=== PATIENT | female | born 1990 | race Two or more races ===

== ENCOUNTER → 2018-12-12 | Emergency (ER) | payer BC, OTHER ==
[~2018-12-12] VITALS: Ht 175.3 cm; Wt 99.8 kg
[~2018-12-12] MED LIST: BACLOFEN 10 MG TAB PO ONE; HYDROcodone-ACET 5/325MG TAB PO ONE; SODIUM CHLORIDE 0.9% 1,000 ML IV ONE
[2018-12-13 04:35] VITALS: BP 106/61
== END | disposition home or self-care (01) ==
LOC: EDBD 19:10 → ER 19:13
DX: S01.111A Laceration without foreign body of right eyelid and periocular area, initial encounter (principal); M62.838 Other muscle spasm; V49.49XA Driver injured in collision with other motor vehicles in traffic accident, initial encounter; Y93.89 Activity, other specified; Y99.8 Other external cause status; Y92.410 Unspecified street and highway as the place of occurrence of the external cause
CPT/HCPCS: 12011; 70450; 72125; 73030; 73070; 73501; 73562; 94761; 99284; J7030; 74176

== ENCOUNTER → 2019-01-05 | Outpatient (CLI) | payer BC | END | disposition home or self-care (01) | LOC: LAB 10:21 | PROVIDERS: ATTEND Internal Medicine | DX: Z01.818 Encounter for other preprocedural examination (principal) | CPT/HCPCS: 36415; 82565; 84520 ==